=== PATIENT | female | born 1955 | race African-American/Black ===

== ENCOUNTER 2022-01-30 11:16 | Emergency (ER) | payer MEDICAID ==
[~2022-01-30] VITALS: Ht 165.1 cm; Wt 75.0 kg
[2022-01-30] MEDS ORDERED: ACETAMINOPHEN 325MG TABLET PO ONE (11:30)
[2022-01-30] MEDS ORDERED: ACET650T37 MT (14:20)
[2022-01-30] MEDS ORDERED: METH-773 MT (14:20)
[2022-01-30 14:33] VITALS: BP 148/86
== END 2022-01-30 14:35 | disposition home or self-care (01) ==
LOC: ER 12:24
DX: M25.511 Pain in right shoulder (principal); E11.9 Type 2 diabetes mellitus without complications; I10 Essential (primary) hypertension; S09.90XA Unspecified injury of head, initial encounter; V49.9XXA Car occupant (driver) (passenger) injured in unspecified traffic accident, initial encounter; Y93.89 Activity, other specified; Y92.89 Other specified places as the place of occurrence of the external cause; Y99.8 Other external cause status
CPT/HCPCS: 73030; 99284

== ENCOUNTER 2022-04-12 13:34 | Emergency (ER) | payer MEDICAID ==
[~2022-04-12] VITALS: Ht 165.1 cm; Wt 84.0 kg
[~2022-04-12 13:34] MED LIST: ACET-3163 MT; METH-773 MT
[2022-04-12] MEDS ORDERED: METFORMIN (13:39)
[2022-04-12] MEDS ORDERED: SODIUM CHLORIDE 0.9% 1,000 ML IV ONE ×2 (14:00→17:45)
[2022-04-12 15:32] LABS: BASOPHILS % 0.4 % (0.0-2.0); EOSINOPHILS % 0.4 % (0.0-5.0); HEMATOCRIT. 39.7 % (36.0-48.0); HEMOGLOBIN. 12.8 g/dL (12.0-16.0); LYMPHOCYTES % 22.3 % (20.0-50.0); MEAN CORPUSCULAR HEMOGLOBIN 28.8 pg (28.0-32.0); MEAN CORPUSCULAR VOLUME 89.2 fL (81.0-99.0); MEAN PLATELET VOLUME 8.7 fl (7.4-10.4); MONOCYTES % 4.2 % (2.0-8.0); NEUTROPHILS % 72.7 % (40.0-76.0); PLATELET 270 x1000/uL (130-400); RED BLOOD CELL COUNT 4.45 mill/uL (4.2-5.4); RED CELL DISTRIBUTION WIDTH 13.2 % (11.6-14.6)
[2022-04-12 15:39] LABS: CHLORIDE 100 mEq/L (98-107)
[2022-04-12 15:42] LABS: PROTHROMBIN TIME 10.7 sec (9.6-11.0)
[2022-04-12 15:52] LABS: BETA HYDROXYBUTYRATE 0.4 mMol/L (0.0-0.3)
[2022-04-12] MEDS ORDERED: INSULIN REGULAR (HUMULIN R) 300UNITS/3ML VIAL IV ONE ×2 (16:45→19:15)
[2022-04-12 17:16] LABS: CLARITY URINE CLEAR (CLEAR); COLOR URINE YELLOW (YELLOW); KETONES URINE 1+ (NEGATIVE); LEUKOCYTE ESTERASE URINE NEGATIVE (NEGATIVE); NITRITE URINE NEGATIVE (NEGATIVE); OCCULT BLOOD URINE NEGATIVE (NEGATIVE); PROTEIN URINE NEGATIVE (NEGATIVE); SPECIFIC GRAVITY URINE 1.047 (1.005-1.030); UROBILINOGEN URINE 0.2 E.U./dL (0.2-1.0)
[2022-04-12 21:12] VITALS: BP 142/70
== END 2022-04-12 22:00 | disposition home or self-care (01) ==
LOC: ER 13:34
DX: E11.65 Type 2 diabetes mellitus with hyperglycemia (principal); Z90.49 Acquired absence of other specified parts of digestive tract; Z98.51 Tubal ligation status; Z79.84 Long term (current) use of oral hypoglycemic drugs
CPT/HCPCS: 36415; 71045; 80053; 81003; 82010; 82962; 83880; 84484; 85025; 85610; 87426; 93005; 96361; 96374; 96376; 99285; C9803; J1815; J7030